=== PATIENT | female | born 1980 | race Caucasian/White ===

== ENCOUNTER 2017-01-14 12:08 | Emergency (ER) | payer OTHER ==
[~2017-01-14] VITALS: Ht 167.6 cm; Wt 90.7 kg
--- NOTE | ~2017-01-14 | EKG ---
[address] [address] ELECTROCARDIOGRAM REPORT Name: VALERYHILTONTONJA Room #: [facility]#: [id number] Admission: 01/14/17 Attend Phys: Discharge: 01/14/17 Date of : 76 Report #: [id number] THIS REPORT FOR: //name// [facility] ED Test Date: 2017-01-14 Test Time: 12:54:48 Pat Name: TONJA BHARDWAJ Department: Room: Gender: F Gy[place] Calciner: : 1980 Requested By: Quita Steiner Order Number: [id number] MD: Vic Tong Measurements Intervals [place] Rate: 62 P: 44 MT: 173 QRS: 23 QRSD: 96 T: 12 QT: 413 QTc: 420 Interpretive Statements Sinus rhythm Low voltage, precordial leads RSR' in V1 or V2, right VCD or RVH No previous ECG available for comparison Electronically Signed On 01-14-2017 15:35:23 CDT by Vic Tong [email or web address] <ELECTRONICALLY SIGNED> By: Vic Tong MD 01/14/17 1535 1254 [id number] Vci Tong MD /DEDRA
[~2017-01-14 12:08] MED LIST: AMOXIL 875 MG875 M1 PO; CLARITIN; DEXAMETHASONE 44 M1 PO; HYDROXYZINE HCL50 MG PO; IRON325 PO; KEFLEX500 MG PO; LEVAQUIN 500 M500 M1 PO; LEVAQUIN 500 M500 M2 PO; MAGNESIUM OXID400 MG PO; NASAL DECONGEST30 ML NASAL; NORCO 5-325 TA1 EACH PO; NUVARING VAGIN1 EACH VG; ONDANSETRON HCL4 M2 PO; PREDNISONE; PRENATAL PO; PROBIOTIC1 EAC1 PO; PSEUDOEPHEDRINE60 M1 PO; TAGAMETTAB; ZYRTEC 10 MG TA10 MG PO; [UNRECOGNIZED DRUG - OTHER] IV
[2017-01-14 12:46] LABS: URINE BILIRUBIN NEGATIVE (Negative); URINE BLOOD NEGATIVE (Negative); URINE COLOR YELLOW; URINE GLUCOSE-RANDOM* NEGATIVE (Negative); URINE KETONES NEGATIVE (Negative); URINE NITRITE NEGATIVE (Negative); URINE PROTEIN (DIPSTICK) NEGATIVE (Negative); URINE SPECIFIC GRAVITY 1.025 (1.003-1.035); URINE UROBILINOGEN 0.2 E.U./dl (0.2-1.0)
[2017-01-14 13:02] LABS: ABSOLUTE NEUTROPHILS 3.5 thou/uL (1.4-8.2); BASOPHILS 1.1 % (0.0-2.0); EOSINOPHILS 1.8 % (0.0-3.0); HEMATOCRIT 39.9 % (37.0-47.0); HEMOGLOBIN 13.3 gm/dL (12.0-15.0); LYMPHOCYTES 29.1 % (24.0-44.0); MCH 26.2 pg (26.0-34.0); MCHC 33.3 g/dL (28.0-37.0); MCV 78.7 fL (80.0-100.0); PLATELET COUNT 225 thou/uL (150-400); RBC 5.07 mil/uL (4.20-5.00); RDW 13.8 % (10.5-14.5); WBC 5.9 thou/uL (4.0-11.0)
[2017-01-14 13:06] LABS: MANUAL DIFF NO
[2017-01-14 13:09] LABS: ANION GAP 7 mmol/L (7-16); BUN 11 mg/dL (7-18); CALCIUM 8.8 mg/dL (8.5-10.1); CHLORIDE 105 mmol/L (98-107); CO2 26 mmol/L (21-32); CREATININE 0.8 mg/dL (0.6-1.0); GLUCOSE 92 mg/dL (74-106); POTASSIUM 3.5 mmol/L (3.5-5.1); SODIUM 138 mmol/L (136-145)
[2017-01-14 13:19] LABS: ALBUMIN 3.7 g/dL (3.4-5.0); ALKALINE PHOSPHATASE 106 U/L (46-116); SGOT 15 U/L (15-37); SGPT 21 U/L (30-65); TOTAL BILIRUBIN 0.3 mg/dL (<0.1-1.0); TOTAL PROTEIN 7.2 g/dL (6.4-8.2); TROPONIN-I < 0.04 ng/mL (<0.06)
[2017-01-14] MEDS ORDERED: VENTOLIN HFA 1818 GM INH (15:11)
== END 2017-01-14 15:31 | disposition home or self-care (01) ==
LOC: ER 12:08
PROVIDERS: Physician Assistant
DX: R06.02 Shortness of breath (principal); F10.99 Alcohol use, unspecified with unspecified alcohol-induced disorder; Z85.72 Personal history of non-Hodgkin lymphomas; Z98.890 Other specified postprocedural states; Z88.8 Allergy status to other drugs, medicaments and biological substances

== ENCOUNTER → 2020-03-12 | Outpatient (CLI) | payer OTHER ==
[~2020-03-12] MED LIST changes: +BARIATRIC MV-I1 EACH PO; +CALCIUM + D SO1 EACH PO; +FERROUS GLUCON324 M2 PO; +VENTOLIN HFA 1818 GM INH
== END ==
LOC: LAB 10:36
PROVIDERS: ATTEND Otolaryngology Plastic Surgery within the Head & Neck
DX: Z01.812 Encounter for preprocedural laboratory examination (principal); Z20.828 Contact with and (suspected) exposure to other viral communicable diseases

== ENCOUNTER 2020-03-18 11:18 | Day surgery (SDC) | payer OTHER ==
[~2020-03-18] VITALS: Ht 165.1 cm; Wt 79.4 kg
[2020-03-18 12:03] LABS: HEMATOCRIT 37.6 % (37.0-47.0); HEMOGLOBIN 12.6 gm/dL (12.0-15.0); MCH 27.7 pg (26.0-34.0); MCHC 33.6 g/dL (28.0-37.0); MCV 82.3 fL (80.0-100.0); RBC 4.56 mil/uL (4.20-5.00); RDW 14.5 % (10.5-14.5); WBC 5.7 thou/uL (4.0-11.0)
[2020-03-18 12:11] LABS: CALCIUM 8.8 mg/dL (8.5-10.1); CREATININE 0.8 mg/dL (0.6-1.0); POTASSIUM 3.5 mmol/L (3.5-5.1)
[2020-03-18 12:18] LABS: ALBUMIN 3.4 g/dL (3.4-5.0); TOTAL BILIRUBIN 0.9 mg/dL (0.2-1.0); TOTAL PROTEIN 6.5 g/dL (6.4-8.2)
[2020-03-18 12:21] VITALS: BP 117/77
[2020-03-18] MEDS ORDERED: NORCO 7.5-3251 EACH PO (15:13)
[2020-03-18 15:55] LABS: ALBUMIN 3.4 g/dL (3.4-5.0); MAGNESIUM 1.8 mg/dL (1.8-2.4)
[2020-03-18 17:18] VITALS: BP 118/74
--- NOTE | 2020-03-18 20:27 | NUR ---
PATIENT ADMITTED FROM OR WITH EXCISION ANTERIORRIGHT NECK MASS AND THYROID LOBECTOMY LEFT. STERI-STRIPS TO NECK AREA WITH ROBERT DRAIN. PATIENT RECEIVED DINNER TRAY. PATIENT C/O PAIN WITH NECK AREA, PATIENT GIVEN 2 HYDROCODONE TABLETS. PATIENT DENIES NAUSEA AT THIS TIME. ADMISSION STARTED, DANIELLE/RN WILL FINISH THE CHECKLIST. REPORT GIVEN TO MARYELLEN/RN. LEFT FOREARM IV IN PLACE, IV FLUIDS AT 75CC/HR.
[2020-03-18 21:05] VITALS: BP 108/66
[2020-03-19 07:16] VITALS: BP 108/66
--- NOTE | 2020-03-19 07:19 | NUR ---
ASSUMED PT CARE TA 1899.PT C/O PAIN TO HER NECK,MANAGED WITH MED.PT UP TO THE BR WITH A STEADY GAIT.DRSG TO HER NECK C/D/I.NO OUTPUT NOTED TO HER ROBERT DRAIN.GOT A CALL FROM DR MAGANA THIS AM TO PULL THE ROBERT DRAIN AND DC PT.AM NOTIFIED TO FOLLOW UP ON.
[2020-03-19 07:57] VITALS: BP 108/66
[2020-03-19 08:44] VITALS: BP 96/54
--- NOTE | 2020-03-19 08:47 | NUR ---
ASSUMED CARE OF PATIENT AT 0645 PT ALERT XS 4 GIVEN PRN PAIN MED AT THIS TIME, PT TO DISCHARGE THIS AM. IV ACSESS DCD AND ROBERT TO NECK, PER DR MAGANA CALLED AT CHANGE OF SHIFT AND TOLD NOC NURSE TO DC. ALL BELONGINGS PACKED TO BE SENT WITH PATIENT.
--- NOTE | 2020-03-19 09:34 | NUR ---
assessment: CM REVIEWED CHART AND SPOKE WITH PT. PT IS ALERT AND ORIENTED X4. PT IS S/P ECISION OF MASS FROM NECK. PT REPORTS BEING FULLY INDEPENDENT WITH ADLS AND AMBULATION. CM DISCUSSED ROLE. PT STATES SHE DOES NOT ANTICIPATE ANY NEEDS FROM CM. PLANS TO DISCHARGE HOME TODAY.
[2020-03-19 09:59] VITALS: BP 108/66
--- NOTE | 2020-03-20 11:07 | PATH ---
[facility] [place] [address] PATHOLOGY RPT PROCEDURE Name: TONJA BHARDWAJ Room #: [facility]#: [id number] Admission: 03/18/20 Date of : 76 Discharge: 03/19/20 Report #: [id number] Path Case #: [id number] [facility] Accession Number: [id number] . 01 Material submitted: . PART A: trachea - RIGHT SUPERIOR PARATRACHEAL MASS FS. Modifiers: right, superior PART B: thyroid gland - LEFT THYROID LOBE SUSPICIOUS NODULE. Modifiers: left . 01 Clinical history: . MASS OF LEFT SIDE OF NECK,THYROID NODULE, NODULAR SCLEROSIS CLASSICA, HODGKINS LYMPHOMA, HISTORY OF HODGKINS DISEASE . 02 Frozen section diagnosis: . FROZEN SECTION DIAGNOSES (Dr. Jill Brito) . FSA1. Right superior peritracheal mass, biopsy: - Thyroid parenchyma. . These findings are discussed with Dr. Manuelito Jorgensen in OR2 and a written report is placed in the patient's chart. . FSB1 and TPB2. Left thyroid lobe: - TPB2 shows micro particles and focal dense colloid. - FS slides with mixed macro and microfollicular architecture. - No definitive nuclear features of papillary carcinoma identified on FS or TP slides. . These findings are discussed with Dr. Manuelito Jorgensen in OR2 at [facility] and a written report is placed in the patient's chart. . . FROZEN SECTION GROSS DESCRIPTION A. Specimen is received fresh from the OR labeled with the patient's name, and "right superior peritracheal mass", consists of a 1.5 x 1.2 x 1 cm red-hernandez soft tissue. It is inked black and serially sectioned, entirely submitted for frozen section as FSA1, subsequently submitted for permanent sections as A1. (IUV:industrial ecologist; 03/18/2020) . B. Specimen is received fresh from the OR labeled with the patient's name, and "left thyroid lobe suspicious nodule", consists of a 6.5 gram unoriented thyroid lobe measuring 5.2 x 2.5 x 0.5 cm. The marybeth are removed and the capsule is inked black. At this point, the specimen is serially sectioned and it shows a well-circumscribed 0.5 x 0.5 x 0.5 cm nodule in the middle of the thyroid lobe approximately 1 mm from the closest margin without a distinct capsule evident and a focal speck of [address] [address] PATHOLOGY RPT PROCEDURE Name: TONJA BHARDWAJ Room #: [facility] [place]#: [id number] Admission: 03/18/20 Date of : 76 Discharge: 03/19/20 Report #: [id number] Path Case #: [id number] calcification. The remainder of the thyroid parenchyma appears spongey and unremarkable. Product Tester section of one half of the nodule (sales and merchandising representative opposite half) is submitted for frozen section as FSB1, the unfrozen portion of the nodule is used for a touch preparation labeled TPB2. The frozen section remnant from FSB1 is submitted for permanent sections in B1. The unfrozen remaining half of the nodule is submitted for permanent sections in B2. The remainder of the lobe is submitted for permanent sections in entirety in B3 and B4. (IUV:octavia; 03/18/2020) . . Frozen sections and touch prep performed at [facility], [address] , [place] [address]. IZV/MBR . 02 Diagnosis: A. Tissue designated as, "right superior paratracheal mass", biopsy: - Mixed macro and micro nodular thyroid parenchyma with hyperplasia. - Minute 1 mm reactive lymph node identified in perithyroidal soft tissue. - Skeletal muscle with reactive changes. . B. Thyroid, left thyroid lobe "suspicious nodule", lobectomy: - Mixed micro-macrofollicular adenomatoid nodule measuring 0.5 cm in greatest dimension. - Background thyroid parenchyma showing multinodular hyperplasia. - Negative for malignancy. . (IUV:mml; 03/19/2020) [facility] 03/20/2020 1024 Local . 02 Comment: Dr. Dominick Mitchell has reviewed sales and merchandising representative slides (slides B2 and B4) of this case and concurs with my diagnosis. . (IUV:mml; 03/19/2020) . 02 Electronically signed: . Jill Brito MD, Pathologist NPI- [id number] . 03 Gross description: . A. PLEASE SEE GROSS DESCRIPTION UNDER FROZEN SECTION DIAGNOSIS. . B. PLEASE SEE GROSS DESCRIPTION UNDER FROZEN SECTION DIAGNOSIS. /MBR 03/18/2020 1759 Local . 02 [facility] [address] [place] [address] PATHOLOGY RPT PROCEDURE Name: TONJA BHARDWAJ Room #: [facility].#: [id number] Admission: 03/18/20 Date of : [birth year] Discharge: 03/19/20 Report #: [id number] Path Case #: [id number] Pathologist provided ICD-10: E04.9, E04.1 . 02 CPT . 130427, 223746, 957287, 278904 Specimen Comment: A courtesy copy of this report has been sent to [phone] Specimen Comment: [phone] Specimen Comment: Report sent to / DR MACIEL Performed at: [address] [facility], [place], [place] [id number] MD Jimbo Anthony MD Phone: [phone] Performed at: [address] [id number] MD Jill Brito MD Phone: [phone] Performed at: [address], [place], [place] [id number] MD Johann Longoria MD Phone: [phone]
--- NOTE | 2020-03-24 17:15 | O ---
[facility] [place] [address] OPERATIVE REPORT Name: TONJA BHARDWAJ Room #: [facility]P [facility].#: [id number] Admission: 03/18/20 Attend Phys: Manuelito Jorgensen MD Discharge: 03/19/20 Date of : 76 Report #: [id number] THIS REPORT FOR: cc: Keira Bryson MD, Hillary N. MD Walton,Manuelito Smith MD ~ DATE OF SERVICE: 03/18/2020 SURGEON: Manuelito Jorgensen MD PREOPERATIVE DIAGNOSES: 1. Right neck mass. 2. Left thyroid nodule suspicious TIRAD 5. 3. History of nodular sclerosis classical non-Hodgkin's lymphoma. POSTOPERATIVE DIAGNOSES: 1. Right neck mass. 2. Left thyroid nodule suspicious TIRAD 5. 3. History of nodular sclerosis classical non-Hodgkin's lymphoma. OPERATIONS PERFORMED: 1. Excision, right neck mass. 2. Left thyroid lobectomy. 3. Nerve integrity monitoring x 2 hours. INDICATIONS: The patient is a 40-year-old female who presented in followup after a recent CT ultrasound of her neck ordered by Dr. Sheehan had shown a mass in her neck, 1.4 x 0.5 x 1.2 cm oval shaped in the right paramedian anterior neck just superior to the thyroid isthmus, but clearly not connected to the thyroid. The concern was that this may be an atypical lymph node. In light of a history of Hodgkin's disease, recommendations were made for biopsy. At the same time, this ultrasound had shown an abnormal mass in the left lobe of thyroid measuring 8 x 5 x 7 mm with punctate echogenic foci, TIRAD 5 suspicious. Unfortunately, this did not meet size criteria for nice fine needle aspiration. In light of the approach to this neck mass, I recommended left thyroid lobectomy for definitive biopsy, especially with her past history. CT scan was also done preoperatively on 02/28/2020 and reviewed confirming the findings on the ultrasound with a mass extrinsic to the thyroid and no abnormal adenopathy otherwise. In light of the above, options of more aggressive biopsy were recommended to the patient. DESCRIPTION OF PROCEDURE: The patient was brought to the operating room and placed supine on the operating table. After adequate general anesthesia was achieved via endotracheal intubation with a nerve integrity monitoring [address] [address] OPERATIVE REPORT Name: TONJA BHARDWAJ Room #: [facility]P [facility]..#: [id number] Admission: 03/18/20 Attend Phys: Manuelito Jorgensen MD Discharge: 03/19/20 Date of : 76 Report #: [id number] endotracheal tube, shoulder roll was placed and neck was extended. The planned incision was marked out in a relaxed skin tension line just above the manubrium and injected with 1% Xylocaine with 1:100,000 epinephrine. As a separate part of the procedure, the [employer] nerve integrity monitor was applied to the electrodes from the endotracheal tube. In addition, ground electrodes were placed in the soft tissue overlying the sternum and contralateral shoulder. Electrode resistance and impedance was measured and found to be acceptable. Threshold and stimulus intensity parameters were set and the patient was monitored for the entirety of the case of approximately 1-1/2 hour in order to locate and protect the recurrent nerve. The patient was prepped and draped sterilely. Procedure began with an incision through skin and subcutaneous tissue and platysma. Subplatysmal flaps were elevated superiorly and inferiorly. Dissection was made down to the strap muscles. These were divided vertically in the midline and retracted laterally. Dissection was made down to the thyroid gland. The left lobe was then isolated and dissected so that this could be examined. There was a mass that was very firm with calcification in the inferior pole as seen on ultrasound. The right lobe did not have any palpable abnormality. Just superior to the right lobe, there was a 1.5 cm mass, clearly extrinsic to the thyroid with no connection to the isthmus or upper right lobe. This had some impression into the thyroid cartilage. Dissection then began on this mass, taking a margin of soft tissue around it. This was dissected off the thyroid cartilage with the harmonic steve and delivered off the field as specimen to pathology. The pathologist on frozen section confirmed a mixed micro and macrofollicular thyroid mass with no lymphoid tissue or evidence of lymph node. This clearly seemed to be an extrinsic thyroid mass. While this was being done, the left lobe was dissected beginning superiorly. The superior vessels were sequentially identified, clamped between Ligaclips and divided. Middle thyroid vein was taken down between Ligaclips and the inferior vessels sequentially identified, clamped between Ligaclips and divided. The isthmus was dissected off the thyroid and taken down with harmonic steve. The lobe was then rolled up on to the trachea. Dissection in the tracheoesophageal groove revealed the recurrent nerve in its usual anatomic position. This was tracked superiorly to the cricothyroid joint and confirmed with probe stimuli. Vicente's ligament was taken down sharply with a nerve under direct vision. The vessels in this region were clamped between Ligaclips and divided. There was an inferior parathyroid attached to the thyroid capsule running with the inferior thyroid artery. This was dissected free and preserved. There was a superior parathyroid attached to the thyroid capsule at the cricothyroid joint also dissected free on its blood supply pedicle and preserved. Vicente's ligament was then completed and taken down and this lobe delivered off the field as specimen to pathology. Frozen section did confirm a mixed micro and macrofollicular [facility] [address] [place] [address] OPERATIVE REPORT Name: TONJA BHARDWAJ Room #: DEP [facility] M.R.#: [id number] Admission: 03/18/20 Attend Phys: Manuelito Jorgensen MD Discharge: 03/19/20 Date of : 76 Report #: [id number] nodule ____ papillary carcinoma. Only a portion of this could be biopsied because of the calcification. Wound was then irrigated. The recurrent laryngeal nerve was stimulated at the end of the procedure and found to be intact. Powdered Carlo was placed opposite the cricothyroid joint. Once hemostasis was assured, the strap muscles were closed in the midline with interrupted 3-0 Vicryl. A 3-0 Vicryl was used to close the platysmal layer and 4-0 Vicryl deep dermal sutures placed with a 5-0 running subcuticular Prolene on skin. Prior to closure, a 10-Yoruba Seamus drain was placed through a separate stab incision, curled into the wound and connected to bulb suction. It was sutured in place with 2-0 silk. The patient was then returned to anesthesia, awakened without difficulty, returned to recovery in good condition. Sponge and needle counts were correct. There were no complications. Blood loss was about 10 mL. She will be watched until awake and stable, presuming she does well, and then discharge to home in the morning if the calciums remain normal. Written and verbal discharge instructions and emergency precautions have been given to her family. Discharge medications will include cephalexin 500 mg b.i.d. for 10 days, hydrocodone/acetaminophen 7.5/325 one to two q. 4-6 hours p.r.n. and Zofran ODT 4 mg tablet 1 p.o. 4-6 hours p.r.n., Tums 2 p.o. t.i.d. She is instructed on light activity and a soft diet. We will hold on any treatment with Synthroid pending postoperative blood work hoping that her remaining lobe will suffice for her hormonal needs. <ELECTRONICALLY SIGNED> By: Manuelito Jorgensen MD 03/24/20 1715 1456 1530 Manuelito Jorgensen MD /nt
== END 2020-03-19 10:02 | disposition home or self-care (01) ==
LOC: OR 11:18 → TBA 11:30 → OR 12:32 → 4S 17:09 → OR 03-19 10:02
PROVIDERS: ATTEND Otolaryngology Plastic Surgery within the Head & Neck
DX: E04.1 Nontoxic single thyroid nodule (principal); R22.1 Localized swelling, mass and lump, neck; M79.89 Other specified soft tissue disorders; D64.9 Anemia, unspecified; Z98.890 Other specified postprocedural states; Z79.899 Other long term (current) drug therapy; Z85.72 Personal history of non-Hodgkin lymphomas; Z88.8 Allergy status to other drugs, medicaments and biological substances
CPT/HCPCS: 10102; 50010; 50101; 50386; 50417; 52190; 52220; 52287; 56524; 56526; 56528; 56760; 57006; 62110; 62900; 70005